=== PATIENT | female | born 1960 | race Two or more races ===

== ENCOUNTER 2016-11-17 21:04 | Emergency (ER) | payer MEDICAID ==
[~2016-11-17] VITALS: Ht 160 cm; Wt 73.0 kg
[~2016-11-17 21:04] MED LIST: ACET325T14 PO; HYDR25TA6 PO; OXYC-223 PO; OXYC-302 PO; SULF1TAB24 PO; WARF1TAB PO
[2016-11-17] MEDS ORDERED: HYDROCHLOROTHIAZIDE 25 MG TABLET PO ONE (23:00)
[2016-11-17 23:54] VITALS: BP 169/83
== END 2016-11-18 00:04 | disposition home or self-care (01) ==
LOC: ED 23:57
DX: S60.212A Contusion of left wrist, initial encounter (principal); S70.02XA Contusion of left hip, initial encounter; S90.32XA Contusion of left foot, initial encounter; I10 Essential (primary) hypertension; W01.0XXA Fall on same level from slipping, tripping and stumbling without subsequent striking against object, initial encounter; Y93.01 Activity, walking, marching and hiking; Y92.090 Kitchen in other non-institutional residence as the place of occurrence of the external cause; Y99.8 Other external cause status; Z88.0 Allergy status to penicillin; Z87.440 Personal history of urinary (tract) infections
CPT/HCPCS: 29125

== ENCOUNTER 2016-12-03 07:14 | Inpatient (IN) | payer MEDICAID ==
[~2016-12-03] VITALS: Ht 157.5 cm; Wt 72.0 kg
[2016-12-03] MEDS ORDERED: SODIUM CHLORIDE FLUSH 10ML SYR IVF ONE (08:00)
[2016-12-03 08:03] LABS: BLOOD UREA NITROGEN 15 mg/dL (7-18)
[2016-12-03 08:07] LABS: IS PT STATUS REG ER OR PRE ER? YES
[2016-12-03] MEDS ORDERED: ENOXAPARIN 40 MG/0.4 ML SQ SCH (11:30)
[2016-12-03] MEDS ORDERED: ACETAMINOPHEN 650 MG/20.3 ML UDC PO PRN (11:30)
[2016-12-03] MEDS ORDERED: POTASSIUM CHLORIDE 20 MEQ TAB.ER.PRT PO ONE (11:30)
[2016-12-03] MEDS ORDERED: ASPIRIN 325 MG TABLET EC PO ONE (11:30)
[2016-12-03 11:58] VITALS: BP 167/88
[2016-12-03 14:06] VITALS: BP 164/73
[2016-12-03 14:07] LABS: IS PT STATUS REG ER OR PRE ER? NO
[2016-12-03 18:44] VITALS: BP 176/107
[2016-12-03 20:06] VITALS: BP 157/89
[2016-12-03] MEDS ORDERED: SIMVASTATIN 10 MG TABLET PO SCH (21:00)
[2016-12-04 00:03] VITALS: BP 146/67
[2016-12-04 04:00] VITALS: BP 142/79
[2016-12-04 06:18] LABS: ASPARTATE AMINO TRANSFERASE 17 U/L (15-37); BLOOD UREA NITROGEN 12 mg/dL (7-18)
[2016-12-04 08:28] VITALS: BP 153/76
[2016-12-04 13:12] VITALS: BP 176/98
[2016-12-04] MEDS ORDERED: LISI-167 PO (14:17)
[2016-12-04] MEDS ORDERED: ASPI-621 PO (14:17)
[2016-12-04] MEDS ORDERED: ENOXAPARIN 40 MG/0.4 ML SQ SCH (16:00)
[2016-12-05] MEDS ORDERED: LISINOPRIL 10 MG TABLET PO SCH (09:00)
== END 2016-12-04 18:40 | disposition home or self-care (01) | DRG 93 ==
LOC: ED 08:25 → EDIP 10:32 → 4EST 11:35
PROVIDERS: ADMIT Family Medicine; ATTEND Family Medicine
DX: R47.1 Dysarthria and anarthria (principal); E87.6 Hypokalemia; I25.10 Atherosclerotic heart disease of native coronary artery without angina pectoris; I11.9 Hypertensive heart disease without heart failure; I25.2 Old myocardial infarction; Z86.73 Personal history of transient ischemic attack (TIA), and cerebral infarction without residual deficits; Z91.14 Patient's other noncompliance with medication regimen; Z83.3 Family history of diabetes mellitus; Z82.49 Family history of ischemic heart disease and other diseases of the circulatory system; Z88.0 Allergy status to penicillin
CPT/HCPCS: 36415; 70450; 70551; 80048; 80053; 80061; 82040; 82962; 84443; 84484; 85025; 85610; 85730; 93005; 93306; 93880; 99285; J1650; 92523-GN

== ENCOUNTER 2017-04-08 23:48 | Emergency (ER) | payer MEDICAID ==
[~2017-04-08] VITALS: Ht 157.5 cm; Wt 71.3 kg
[~2017-04-08 23:48] MED LIST changes: +ASPI-621 PO; +LISI-167 PO; -OXYC-223 PO; +OXYC-306 PO
[2017-04-09 00:21] VITALS: BP 182/103
[2017-04-09 00:36] LABS: HEMATOCRIT 42.6 % (34.6-47.8); HEMOGLOBIN 14.5 g/dL (11.7-16.4); WHITE BLOOD COUNT 6.9 x10^3/uL (3.4-10)
[2017-04-09 00:46] LABS: ASPARTATE AMINO TRANSFERASE 15 U/L (15-37); BLOOD UREA NITROGEN 15 mg/dL (7-18)
[2017-04-09 00:54] LABS: IS PT STATUS REG ER OR PRE ER? YES
== END 2017-04-09 01:40 | disposition home or self-care (01) ==
LOC: ED 23:59
DX: R06.00 Dyspnea, unspecified (principal); R11.0 Nausea; I10 Essential (primary) hypertension; Z86.73 Personal history of transient ischemic attack (TIA), and cerebral infarction without residual deficits; I25.10 Atherosclerotic heart disease of native coronary artery without angina pectoris; Z88.0 Allergy status to penicillin
CPT/HCPCS: 36415; 71020; 80053; 83880; 84484; 85025; 93005; 99285

== ENCOUNTER 2017-04-27 07:52 | Emergency (ER) | payer MEDICAID ==
[~2017-04-27] VITALS: Ht 157.5 cm; Wt 70.7 kg
[2017-04-27] MEDS ORDERED: METOPROLOL 1 MG/ML, 5ML IVPush PRN (08:30)
[2017-04-27] MEDS ORDERED: SODIUM CHLORIDE FLUSH 10ML SYR IVF ONE (08:30)
[2017-04-27] MEDS ORDERED: METOPROLOL 1 MG/ML, 5ML ONE (08:56)
[2017-04-27 09:00] LABS: HEMATOCRIT 44.7 % (34.6-47.8); HEMOGLOBIN 15.4 g/dL (11.7-16.4); WHITE BLOOD COUNT 5.2 x10^3/uL (3.4-10)
[2017-04-27 09:03] LABS: ASPARTATE AMINO TRANSFERASE 12 U/L (15-37); BLOOD UREA NITROGEN 13 mg/dL (7-18)
[2017-04-27 09:05] LABS: PATH.CAST-FLAG NOT PRESENT; SPERM-FLAG NOT PRESENT; SRC-FLAG NOT PRESENT; XTAL-FLAG NOT PRESENT; YLC-FLAG NOT PRESENT
[2017-04-27 09:10] LABS: IS PT STATUS REG ER OR PRE ER? YES
[2017-04-27] MEDS ORDERED: OMNIPAQUE 350 MG/ML, 100ML BOTTLE ONE (09:41)
[2017-04-27 09:58] VITALS: BP 141/83
== END 2017-04-27 10:35 | disposition home or self-care (01) ==
LOC: ED 08:56
DX: M54.5 Low back pain (principal); M54.6 Pain in thoracic spine; I10 Essential (primary) hypertension; I25.2 Old myocardial infarction; Z86.73 Personal history of transient ischemic attack (TIA), and cerebral infarction without residual deficits
CPT/HCPCS: 36415; 71010; 71275; 74175; 80053; 81001; 84484; 85025; 93005; 96374; 99285; Q9967

== ENCOUNTER 2017-10-09 14:25 | Emergency (ER) | payer MEDICAID ==
[~2017-10-09] VITALS: Ht 157.5 cm; Wt 70.8 kg
[2017-10-09 15:27] LABS: BASOPHILS # (AUTO) 0.03 x10^3/uL (0-0.1); BASOPHILS % (AUTO) 0 % (0-1); EOSINOPHILS # (AUTO) 0.01 x10^3/uL (0-0.4); EOSINOPHILS % (AUTO) 0 % (1-7); LYMPHOCYTES # (AUTO) 2.01 x10^3/uL (1-3.4); LYMPHOCYTES % (AUTO) 22 % (22-44); MD NO; MEAN CORPUSCULAR HEMOGLOBIN 32.1 pg (27.0-34.8); MEAN CORPUSCULAR HGB CONC 34.1 g/dL (32.4-35.8); MEAN CORPUSCULAR VOLUME 94.3 fL (80-100); MEAN PLATELET VOLUME 10.6 fL (7.4-10.4); MONOCYTES % (AUTO) 5 % (2-9); NEUTROPHILS # (AUTO) 6.56 x10^3/uL (1.8-6.8); NEUTROPHILS % (AUTO) 73 % (42-75); PLATELET COUNT 200 x10^3/uL (130-400); RED BLOOD COUNT 4.81 x10^6/uL (3.82-5.3); RED CELL DISTRIBUTION WIDTH 13.3 % (9.6-15.2)
[2017-10-09 15:31] LABS: INTERNATIONAL NORMALIZED RATIO 0.97 (0.93-1.1); PROTHROMBIN TIME 10.1 Seconds (9.6-11.5)
[2017-10-09 15:35] LABS: ALBUMIN 4.5 g/dL (3.4-5.0); ANION GAP 7 mmol/L (5-15); CALCIUM 9.1 mg/dL (8.5-10.1); CHLORIDE 106 mmol/L (98-107)
[2017-10-09 15:38] LABS: TROPONIN I < 0.015 ng/mL (0.000-0.045)
[2017-10-09 15:51] VITALS: BP 150/81
[2017-10-10] MEDS ORDERED: LISI1TAB3 PO (07:38)
== END 2017-10-09 17:09 | disposition home or self-care (01) ==
LOC: ED 16:55
DX: G45.9 Transient cerebral ischemic attack, unspecified (principal); I10 Essential (primary) hypertension; I25.2 Old myocardial infarction; I25.10 Atherosclerotic heart disease of native coronary artery without angina pectoris; Z86.73 Personal history of transient ischemic attack (TIA), and cerebral infarction without residual deficits
CPT/HCPCS: 36415; 70450; 71045; 80048; 82040; 84484; 85025; 85610; 93005; 99285

== ENCOUNTER 2017-10-10 07:01 | Inpatient (IN) | payer MEDICAID ==
[~2017-10-10] VITALS: Ht 157.5 cm; Wt 59.3 kg
[2017-10-10] MEDS ORDERED: LISI1TAB3 PO (07:38)
[2017-10-10] MEDS ORDERED: MORPHINE SULFATE 4 MG/ML, 1ML IVPush PRN (08:00)
[2017-10-10] MEDS ORDERED: SODIUM CHLORIDE FLUSH 10ML SYR IVF ONE (08:00)
[2017-10-10] MEDS ORDERED: ONDANSETRON 2MG/ML, 2ML IVPush ONE (08:00)
[2017-10-10] MEDS ORDERED: ONDANSETRON 2MG/ML, 2ML ONE (08:10)
[2017-10-10 08:15] LABS: BASOPHILS # (AUTO) 0.01 x10^3/uL (0-0.1); BASOPHILS % (AUTO) 0 % (0-1); EOSINOPHILS # (AUTO) 0.03 x10^3/uL (0-0.4); EOSINOPHILS % (AUTO) 1 % (1-7); LYMPHOCYTES % (AUTO) 27 % (22-44); MD NO; MEAN CORPUSCULAR HEMOGLOBIN 32.2 pg (27.0-34.8); MEAN CORPUSCULAR HGB CONC 34.4 g/dL (32.4-35.8); MEAN CORPUSCULAR VOLUME 93.4 fL (80-100); MEAN PLATELET VOLUME 10.1 fL (7.4-10.4); MONOCYTES # (AUTO) 0.25 x10^3/uL (0.2-0.8); MONOCYTES % (AUTO) 6 % (2-9); NEUTROPHILS # (AUTO) 2.93 x10^3/uL (1.8-6.8); NEUTROPHILS % (AUTO) 66 % (42-75); PLATELET COUNT 185 x10^3/uL (130-400); RED BLOOD COUNT 4.52 x10^6/uL (3.82-5.3); RED CELL DISTRIBUTION WIDTH 13.4 % (9.6-15.2)
[2017-10-10 08:22] LABS: PROTHROMBIN TIME 10.4 Seconds (9.6-11.5)
[2017-10-10 08:26] LABS: ANION GAP 8 mmol/L (5-15); CALCIUM 8.7 mg/dL (8.5-10.1); CHLORIDE 107 mmol/L (98-107); CREATININE 0.69 mg/dL (0.55-1.02)
[2017-10-10 08:30] LABS: TROPONIN I < 0.015 ng/mL (0.000-0.045)
[2017-10-10 08:51] LABS: MICROSCOPIC INDICATED
[2017-10-10] MEDS ORDERED: LORazepam 2 MG/ML, 1ML ONE (09:12)
[2017-10-10] MEDS ORDERED: LORazepam 2 MG/ML, 1ML IVPush ONE (09:30)
[2017-10-10] MEDS ORDERED: GADOBUTROL 7.5 MMOL/7.5 ML PFS ONE (09:49)
[2017-10-10 11:05] VITALS: BP 114/74
[2017-10-10] MEDS ORDERED: ENALAPRILAT 1.25 MG/ML, 2ML IV PRN (11:30)
[2017-10-10] MEDS ORDERED: BISACODYL 10 MG SUPP PR PRN (11:30)
[2017-10-10] MEDS ORDERED: ACETAMINOPHEN 650 MG/20.3 ML UDC PO PRN (11:30)
[2017-10-10] MEDS ORDERED: DOCUSATE 100 MG CAPSULE PO PRN (11:30)
[2017-10-10] MEDS ORDERED: POLYETHYLENE GLYCOL 17 GM PACKET PO PRN (11:30)
[2017-10-10] MEDS ORDERED: ONDANSETRON 2MG/ML, 2ML IVPush PRN (11:30)
[2017-10-10] MEDS: SODIUM CHLORIDE 0.9% 1,000 ML IV SCH ×2 (11:55→20:47)
[2017-10-10 15:19] VITALS: BP 113/75
[2017-10-10 18:48] VITALS: BP 116/71
[2017-10-10] MEDS ORDERED: ATORVASTATIN 40 MG TABLET PO SCH (21:00)
[2017-10-11 01:25] VITALS: BP 103/65
[2017-10-11 05:54] LABS: HCT (SEDRATE) 39.2 % (34.6-47.8)
[2017-10-11 06:02] LABS: C-REACTIVE PROTEIN, QUANT 0.2 mg/dL (0.02-0.49)
[2017-10-11 06:04] LABS: CHOL/HDL RATIO 3.6; LDL/HDL RATIO 2.1 (0.5-3.0)
[2017-10-11] MEDS: SODIUM CHLORIDE 0.9% 1,000 ML IV SCH (07:07)
[2017-10-11 07:45] VITALS: BP 119/76
[2017-10-11] MEDS ORDERED: ASPIRIN 81 MG TABLET CHEW PO/NG SCH (09:00)
[2017-10-11] MEDS ORDERED: ATOR40TA78 PO (12:27)
[2017-10-11 14:12] VITALS: BP 126/84
== END 2017-10-11 17:09 | disposition home or self-care (01) | DRG 69 ==
LOC: ED 08:25 → EDIP 09:45 → 4EST 10:51
PROVIDERS: ADMIT Internal Medicine; ATTEND Hospitalist
DX: G45.9 Transient cerebral ischemic attack, unspecified (principal); G43.909 Migraine, unspecified, not intractable, without status migrainosus; I10 Essential (primary) hypertension; I25.2 Old myocardial infarction; R29.810 Facial weakness; Z86.73 Personal history of transient ischemic attack (TIA), and cerebral infarction without residual deficits
CPT/HCPCS: 36415; 70553; 80048; 80061; 81001; 82040; 83880; 84484; 85025; 85610; 85651; 86140; 93005; 93306; 93880; 96374; 96375; A9585; J2405; J2060; J7030

== ENCOUNTER 2017-10-16 01:11 | Emergency (ER) | payer MEDICAID ==
[~2017-10-16] VITALS: Ht 152.4 cm; Wt 69.6 kg
[~2017-10-16 01:11] MED LIST changes: +ATOR40TA78 PO; +LISI1TAB3 PO
[2017-10-16 01:43] LABS: BASOPHILS # (AUTO) 0.03 x10^3/uL (0-0.1); BASOPHILS % (AUTO) 0 % (0-1); EOSINOPHILS # (AUTO) 0.11 x10^3/uL (0-0.4); EOSINOPHILS % (AUTO) 1 % (1-7); LYMPHOCYTES # (AUTO) 2.97 x10^3/uL (1-3.4); LYMPHOCYTES % (AUTO) 35 % (22-44); MD NO; MEAN CORPUSCULAR HEMOGLOBIN 31.6 pg (27.0-34.8); MEAN CORPUSCULAR HGB CONC 33.7 g/dL (32.4-35.8); MEAN CORPUSCULAR VOLUME 93.8 fL (80-100); MEAN PLATELET VOLUME 10.5 fL (7.4-10.4); MONOCYTES # (AUTO) 0.59 x10^3/uL (0.2-0.8); MONOCYTES % (AUTO) 7 % (2-9); NEUTROPHILS % (AUTO) 56 % (42-75); PLATELET COUNT 201 x10^3/uL (130-400); RED BLOOD COUNT 4.66 x10^6/uL (3.82-5.3); RED CELL DISTRIBUTION WIDTH 13.1 % (9.6-15.2)
[2017-10-16 01:51] LABS: INTERNATIONAL NORMALIZED RATIO 1.02 (0.93-1.1); PROTHROMBIN TIME 10.5 Seconds (9.6-11.5)
[2017-10-16 01:54] LABS: ALANINE AMINOTRANSFERASE 26 U/L (12-78); ALBUMIN 4.1 g/dL (3.4-5.0); ANION GAP 10 mmol/L (5-15); CALCIUM 8.6 mg/dL (8.5-10.1); CHLORIDE 99 mmol/L (98-107); CREATININE 0.76 mg/dL (0.55-1.02)
[2017-10-16 01:57] LABS: ALKALINE PHOSPHATASE 82 U/L (45-117); BILIRUBIN,TOTAL 0.7 mg/dL (0.2-1.0); TOTAL PROTEIN 8.3 g/dL (6.4-8.2)
[2017-10-16 03:15] VITALS: BP 113/65
== END 2017-10-16 03:18 | disposition home or self-care (01) ==
LOC: ED 01:38
DX: R20.2 Paresthesia of skin (principal); G45.9 Transient cerebral ischemic attack, unspecified; I10 Essential (primary) hypertension; I25.2 Old myocardial infarction; I25.10 Atherosclerotic heart disease of native coronary artery without angina pectoris; Z88.0 Allergy status to penicillin; Z79.82 Long term (current) use of aspirin
CPT/HCPCS: 36415; 70450; 80053; 85025; 85610; 85730; 93005; 99285

== ENCOUNTER 2017-12-14 15:51 | Observation (INO) | payer MEDICAID ==
[~2017-12-14] VITALS: Ht 154.9 cm; Wt 69.0 kg
[2017-12-14 16:07] LABS: BASOPHILS # (AUTO) 0.04 x10^3/uL (0-0.1); BASOPHILS % (AUTO) 1 % (0-1); EOSINOPHILS # (AUTO) 0.06 x10^3/uL (0-0.4); EOSINOPHILS % (AUTO) 1 % (1-7); LYMPHOCYTES % (AUTO) 36 % (22-44); MD NO; MEAN CORPUSCULAR HEMOGLOBIN 32.3 pg (27.0-34.8); MEAN CORPUSCULAR HGB CONC 34.1 g/dL (32.4-35.8); MEAN CORPUSCULAR VOLUME 94.5 fL (80-100); MEAN PLATELET VOLUME 10.5 fL (7.4-10.4); MONOCYTES # (AUTO) 0.49 x10^3/uL (0.2-0.8); MONOCYTES % (AUTO) 6 % (2-9); NEUTROPHILS # (AUTO) 4.37 x10^3/uL (1.8-6.8); NEUTROPHILS % (AUTO) 56 % (42-75); PLATELET COUNT 195 x10^3/uL (130-400); RED BLOOD COUNT 4.71 x10^6/uL (3.82-5.3); RED CELL DISTRIBUTION WIDTH 13.3 % (9.6-15.2)
[2017-12-14 16:15] LABS: INTERNATIONAL NORMALIZED RATIO 0.93 (0.93-1.1); PROTHROMBIN TIME 9.7 Seconds (9.6-11.5)
[2017-12-14] MEDS ORDERED: OMNIPAQUE 350 MG/ML, 100ML BOTTLE ONE (16:52)
[2017-12-14 17:04] LABS: TROPONIN I < 0.015 ng/mL (0.000-0.045)
[2017-12-14] MEDS ORDERED: ENOXAPARIN 40 MG/0.4 ML SQ SCH (18:00)
[2017-12-14] MEDS ORDERED: ACETAMINOPHEN 325 MG TABLET PO PRN (18:00)
[2017-12-14] MEDS ORDERED: DOCUSATE 100 MG CAPSULE PO PRN (18:00)
[2017-12-14] MEDS ORDERED: GUAIFENESIN/COD200MG-20MG/10ML LIQUID PO PRN (18:00)
[2017-12-14] MEDS ORDERED: ONDANSETRON 2MG/ML, 2ML IVPush PRN (18:00)
[2017-12-14] MEDS ORDERED: POTASSIUM CHLORIDE 20 MEQ TAB.ER.PRT PO ONE (18:00)
[2017-12-14] MEDS ORDERED: LABETALOL 5MG/ML, 20ML IVPush PRN (18:00)
[2017-12-14 18:22] LABS: HEMOGLOBIN A1C 6.1 % (4.2-6.3)
[2017-12-14] MEDS ORDERED: SODIUM CHLORIDE FLUSH 10ML SYR IVF PRN (18:30)
[2017-12-14 19:33] VITALS: BP 147/87
[2017-12-14 19:59] VITALS: BP 147/87
[2017-12-14] MEDS: CARVEDILOL 3.125 MG TABLET PO SCH (20:22)
[2017-12-15 00:30] VITALS: BP 105/67
[2017-12-15 04:32] VITALS: BP 108/68
[2017-12-15 05:08] LABS: BASOPHILS # (AUTO) 0.04 x10^3/uL (0-0.1); BASOPHILS % (AUTO) 1 % (0-1); EOSINOPHILS # (AUTO) 0.06 x10^3/uL (0-0.4); EOSINOPHILS % (AUTO) 1 % (1-7); LYMPHOCYTES # (AUTO) 1.96 x10^3/uL (1-3.4); LYMPHOCYTES % (AUTO) 38 % (22-44); MD NO; MEAN CORPUSCULAR HEMOGLOBIN 32.4 pg (27.0-34.8); MEAN CORPUSCULAR HGB CONC 34.2 g/dL (32.4-35.8); MEAN CORPUSCULAR VOLUME 94.9 fL (80-100); MEAN PLATELET VOLUME 10.4 fL (7.4-10.4); MONOCYTES # (AUTO) 0.38 x10^3/uL (0.2-0.8); MONOCYTES % (AUTO) 7 % (2-9); NEUTROPHILS # (AUTO) 2.75 x10^3/uL (1.8-6.8); NEUTROPHILS % (AUTO) 53 % (42-75); PLATELET COUNT 182 x10^3/uL (130-400); RED BLOOD COUNT 4.27 x10^6/uL (3.82-5.3); RED CELL DISTRIBUTION WIDTH 13.6 % (9.6-15.2)
[2017-12-15 05:17] LABS: ANION GAP 7 mmol/L (5-15); CALCIUM 8.5 mg/dL (8.5-10.1); CHLORIDE 110 mmol/L (98-107)
[2017-12-15 05:30] LABS: CHOL/HDL RATIO 3.6; CHOLESTEROL, TOTAL 149 mg/dL (140-239); CREATININE 0.57 mg/dL (0.55-1.02); HDL CHOL % 28 % (28-40); HDL CHOLESTEROL (DIRECT) 41 mg/dL (40-60); LDL CHOLESTEROL,CALCULATED 87 mg/dL (54-169); LDL/HDL RATIO 2.1 (0.5-3.0); TRIGLYCERIDES 106 mg/dL (50-200); VLDL CHOLESTEROL 21 mg/dL (0-25)
[2017-12-15 08:00] VITALS: BP 131/78
[2017-12-15] MEDS ORDERED: LISINOPRIL 10 MG TABLET PO SCH (09:00)
[2017-12-15] MEDS ORDERED: ASPIRIN 81 MG TABLET EC PO SCH (09:00)
[2017-12-15] MEDS ORDERED: HYDROCHLOROTHIAZIDE 12.5 MG CAPSULE PO SCH (09:00)
[2017-12-15] MEDS: CARVEDILOL 3.125 MG TABLET PO SCH (10:02)
[2017-12-15 14:45] VITALS: BP 112/69
== END 2017-12-15 16:30 | disposition home or self-care (01) ==
LOC: ED 17:16 → EDIP 17:17 → INTOOBSV 17:17 → ED 18:12 → 4EST 18:47 → DCLOUNGE 12-15 16:18
PROVIDERS: ADMIT Internal Medicine; ATTEND Internal Medicine
DX: G45.9 Transient cerebral ischemic attack, unspecified (principal); E87.6 Hypokalemia; I10 Essential (primary) hypertension; I25.10 Atherosclerotic heart disease of native coronary artery without angina pectoris; I25.2 Old myocardial infarction; Z96.642 Presence of left artificial hip joint; Z96.652 Presence of left artificial knee joint; Z82.49 Family history of ischemic heart disease and other diseases of the circulatory system; Z83.3 Family history of diabetes mellitus
CPT/HCPCS: 36415; 70450; 70496; 70498; 80047; 80048; 80061; 83036; 83735; 84443; 84484; 85025; 85610; 85730; 93005; 96372; 97162; 97165; 99285; G0378; J1650; Q9967

== ENCOUNTER 2018-03-28 08:02 | Emergency (ER) | payer MEDICAID ==
[~2018-03-28] VITALS: Ht 157.5 cm; Wt 68.2 kg
[2018-03-28] MEDS ORDERED: MECLIZINE CHEWABLE 25 MG TAB PO ONE (09:00)
[2018-03-28 09:19] LABS: ALANINE AMINOTRANSFERASE 22 U/L (12-78); ANION GAP 7 mmol/L (5-15); CALCIUM 8.9 mg/dL (8.5-10.1); CHLORIDE 106 mmol/L (98-107)
[2018-03-28 09:21] LABS: ALKALINE PHOSPHATASE 75 U/L (45-117); BILIRUBIN,TOTAL 0.5 mg/dL (0.2-1.0)
[2018-03-28 09:27] LABS: BASOPHILS # (AUTO) 0.03 x10^3/uL (0-0.1); BASOPHILS % (AUTO) 1 % (0-1); EOSINOPHILS # (AUTO) 0.05 x10^3/uL (0-0.4); EOSINOPHILS % (AUTO) 1 % (1-7); LYMPHOCYTES # (AUTO) 1.45 x10^3/uL (1-3.4); LYMPHOCYTES % (AUTO) 29 % (22-44); MD NO; MEAN CORPUSCULAR HEMOGLOBIN 32.5 pg (27.0-34.8); MEAN CORPUSCULAR HGB CONC 34.3 g/dL (32.4-35.8); MEAN CORPUSCULAR VOLUME 94.6 fL (80-100); MEAN PLATELET VOLUME 10.5 fL (7.4-10.4); MONOCYTES # (AUTO) 0.25 x10^3/uL (0.2-0.8); MONOCYTES % (AUTO) 5 % (2-9); NEUTROPHILS # (AUTO) 3.22 x10^3/uL (1.8-6.8); NEUTROPHILS % (AUTO) 64 % (42-75); PLATELET COUNT 199 x10^3/uL (130-400); RED BLOOD COUNT 4.51 x10^6/uL (3.82-5.3); RED CELL DISTRIBUTION WIDTH 13.1 % (9.6-15.2)
[2018-03-28] MEDS ORDERED: MECLIZINE CHEWABLE 25 MG TAB ONE (09:38)
[2018-03-28] MEDS ORDERED: PROMETHAZINE 25 MG/ML, 1ML IM ONE (10:00)
[2018-03-28] MEDS ORDERED: LISINOPRIL 10 MG TABLET PO ONE (10:00)
[2018-03-28] MEDS ORDERED: KETOROLAC 30 MG/1 ML IM ONE (10:00)
[2018-03-28] MEDS ORDERED: PROMETHAZINE 25 MG/ML, 1ML ONE (10:07)
[2018-03-28] MEDS ORDERED: KETOROLAC 30 MG/1 ML ONE (10:07)
[2018-03-28 10:40] VITALS: BP 156/63
== END 2018-03-28 11:28 | disposition home or self-care (01) ==
LOC: ED 09:50
DX: R51 Headache (principal); R42 Dizziness and giddiness; I10 Essential (primary) hypertension; I25.2 Old myocardial infarction; I25.10 Atherosclerotic heart disease of native coronary artery without angina pectoris; Z86.73 Personal history of transient ischemic attack (TIA), and cerebral infarction without residual deficits; Z88.0 Allergy status to penicillin; Z88.8 Allergy status to other drugs, medicaments and biological substances
CPT/HCPCS: 36415; 70450; 71045; 80053; 85025; 93005; 99285

== ENCOUNTER 2018-04-12 19:37 | Observation (INO) | payer MEDICAID ==
[~2018-04-12] VITALS: Ht 154.9 cm; Wt 71.1 kg
[2018-04-12] MEDS ORDERED: ASPIRIN 81 MG TABLET CHEW PO ONE (20:00)
[2018-04-12 20:17] LABS: BASOPHILS # (AUTO) 0.02 x10^3/uL (0-0.1); BASOPHILS % (AUTO) 0 % (0-1); EOSINOPHILS # (AUTO) 0.05 x10^3/uL (0-0.4); EOSINOPHILS % (AUTO) 1 % (1-7); LYMPHOCYTES # (AUTO) 1.78 x10^3/uL (1-3.4); LYMPHOCYTES % (AUTO) 26 % (22-44); MD NO; MEAN CORPUSCULAR HEMOGLOBIN 32.5 pg (27.0-34.8); MEAN CORPUSCULAR HGB CONC 34.2 g/dL (32.4-35.8); MEAN PLATELET VOLUME 9.8 fL (7.4-10.4); MONOCYTES # (AUTO) 0.42 x10^3/uL (0.2-0.8); MONOCYTES % (AUTO) 6 % (2-9); NEUTROPHILS # (AUTO) 4.49 x10^3/uL (1.8-6.8); NEUTROPHILS % (AUTO) 66 % (42-75); PLATELET COUNT 169 x10^3/uL (130-400); RED BLOOD COUNT 4.17 x10^6/uL (3.82-5.3)
[2018-04-12 20:28] LABS: ALANINE AMINOTRANSFERASE 25 U/L (12-78); ALBUMIN 3.6 g/dL (3.4-5.0); ANION GAP 7 mmol/L (5-15); CALCIUM 8.5 mg/dL (8.5-10.1); CHLORIDE 106 mmol/L (98-107); CREATININE 0.76 mg/dL (0.55-1.02)
[2018-04-12 20:32] LABS: ALKALINE PHOSPHATASE 66 U/L (45-117); BILIRUBIN,TOTAL 0.4 mg/dL (0.2-1.0); TOTAL PROTEIN 7.5 g/dL (6.4-8.2); TROPONIN I < 0.015 ng/mL (0.000-0.045)
[2018-04-12 20:32] LABS: MICROSCOPIC AUTO
[2018-04-12 20:33] LABS: CULTURE INDICATED? NO
[2018-04-12] MEDS ORDERED: BISACODYL 10 MG SUPP PR PRN (22:30)
[2018-04-12] MEDS ORDERED: ACETAMINOPHEN 325 MG TABLET PO PRN (22:30)
[2018-04-12] MEDS ORDERED: ONDANSETRON ODT 4 MG PO PRN (22:30)
[2018-04-12] MEDS ORDERED: POLYETHYLENE GLYCOL 17 GM PACKET PO PRN (22:30)
[2018-04-12] MEDS ORDERED: NITROGLYCERIN 0.4 MG BOTTLE (25 TABS) SL PRN (22:30)
[2018-04-12] MEDS ORDERED: KETOROLAC 30 MG/1 ML IV PRN (22:30)
[2018-04-12] MEDS ORDERED: morphine SULFATE 10 MG/ML, 1ML IVPush PRN (22:30)
[2018-04-12 22:56] VITALS: BP 149/83
[2018-04-12] MEDS ORDERED: HEPARIN 5,000 UNITS/ML, 1ML ONE (23:24)
[2018-04-12] MEDS: HEPARIN 5,000 UNITS/ML, 1ML SQ SCH (23:39)
[2018-04-12] MEDS: SODIUM CHLORIDE FLUSH 10ML SYR IVF SCH (23:39)
[2018-04-12] MEDS: LISINOPRIL 10 MG TABLET PO SCH (23:39)
[2018-04-13 01:15] VITALS: BP 119/71
[2018-04-13 02:33] LABS: TROPONIN I < 0.015 ng/mL (0.000-0.045)
[2018-04-13 02:38] LABS: CHOL/HDL RATIO 4.1; LDL/HDL RATIO 2.5 (0.5-3.0)
[2018-04-13 07:41] VITALS: BP 120/75
[2018-04-13 08:17] LABS: TROPONIN I < 0.015 ng/mL (0.000-0.045)
[2018-04-13] MEDS: HEPARIN 5,000 UNITS/ML, 1ML SQ SCH (08:29)
[2018-04-13] MEDS: SODIUM CHLORIDE FLUSH 10ML SYR IVF SCH (08:31)
[2018-04-13] MEDS ORDERED: REGADENOSON 0.4 MG/5 ML SYRINGE ONE (08:45)
[2018-04-13] MEDS ORDERED: HYDROCHLOROTHIAZIDE 12.5 MG CAPSULE PO SCH (09:00)
[2018-04-13] MEDS ORDERED: SENNA/DOCUSATE TABLET PO SCH (09:00)
[2018-04-13] MEDS ORDERED: ASPIRIN 81 MG TABLET EC PO SCH (09:00)
[2018-04-13] MEDS: LISINOPRIL 10 MG TABLET PO SCH (10:13)
[2018-04-13] MEDS ORDERED: METO25TA35 PO ×2 (13:08→13:09)
[2018-04-13 13:23] VITALS: BP 148/93
== END 2018-04-13 15:00 | disposition home or self-care (01) ==
LOC: ED 21:12 → INTOOBSV 21:50 → EDIP 21:50 → 5SO 22:44 → DCLOUNGE 04-13 14:54
PROVIDERS: ADMIT Hospitalist; ATTEND Family Medicine
DX: R07.89 Other chest pain (principal); R42 Dizziness and giddiness; G43.909 Migraine, unspecified, not intractable, without status migrainosus; I10 Essential (primary) hypertension; I25.2 Old myocardial infarction; I25.10 Atherosclerotic heart disease of native coronary artery without angina pectoris; M19.90 Unspecified osteoarthritis, unspecified site; Z86.73 Personal history of transient ischemic attack (TIA), and cerebral infarction without residual deficits; Z79.82 Long term (current) use of aspirin
CPT/HCPCS: 36415; 71045; 78452; 80053; 80061; 81001; 84484; 85025; 93005; 93017; 96372; 99285; A9502; C9898; G0378; J1644; J2785

== ENCOUNTER 2018-10-04 09:52 | Observation (INO) | payer MEDICAID ==
[~2018-10-04] VITALS: Ht 157.5 cm; Wt 75.7 kg
[~2018-10-04 09:52] MED LIST changes: -ASPI-621 PO; +ASPI81TA45 PO; +METO25TA35 PO
--- NOTE | 2018-10-04 10:12 | NUR ---
PT TO CT VIA ALFREDO, ON MONITOR WITH RN
[2018-10-04 10:16] LABS: BASOPHILS # (AUTO) 0.02 x10^3/uL (0-0.1); BASOPHILS % (AUTO) 0 % (0-1); EOSINOPHILS # (AUTO) 0.05 x10^3/uL (0-0.4); EOSINOPHILS % (AUTO) 1 % (1-7); LYMPHOCYTES # (AUTO) 1.89 x10^3/uL (1-3.4); LYMPHOCYTES % (AUTO) 28 % (22-44); MD NO; MEAN CORPUSCULAR HEMOGLOBIN 31.9 pg (27.0-34.8); MEAN CORPUSCULAR HGB CONC 33.7 g/dL (32.4-35.8); MEAN CORPUSCULAR VOLUME 94.5 fL (80-100); MEAN PLATELET VOLUME 10.4 fL (7.4-10.4); MONOCYTES # (AUTO) 0.33 x10^3/uL (0.2-0.8); MONOCYTES % (AUTO) 5 % (2-9); NEUTROPHILS # (AUTO) 4.39 x10^3/uL (1.8-6.8); NEUTROPHILS % (AUTO) 66 % (42-75); PLATELET COUNT 206 x10^3/uL (130-400); RED BLOOD COUNT 4.85 x10^6/uL (3.82-5.3); RED CELL DISTRIBUTION WIDTH 13.1 % (9.6-15.2)
--- NOTE | 2018-10-04 10:25 | NUR ---
PT RETURN TO ROOM, PLACED ON MONITORS, SR PER MONITOR. PTS DAUGHTER AT BEDSIDE.
[2018-10-04 10:27] LABS: INTERNATIONAL NORMALIZED RATIO 0.95 (0.93-1.1)
[2018-10-04] MEDS ORDERED: ONDANSETRON 2MG/ML, 2ML ONE (10:29)
[2018-10-04] MEDS ORDERED: OMNIPAQUE 350 MG/ML, 100ML BOTTLE ONE (10:30)
[2018-10-04] MEDS ORDERED: ONDANSETRON 2MG/ML, 2ML IVPush ONE (10:30)
--- NOTE | 2018-10-04 10:30 | NUR ---
ON-CALL NEURO MD (DR MILLER) PAGED
--- NOTE | 2018-10-04 10:35 | NUR ---
PT WITH NAUSEA, RETCHING, BEGAN AFTER CT/CONTRAST. PER PTS DAUGHTER PT WAS NAUSEATED AT HOME. PTS DAUGHTER SAW HER NORMAL AT 0530. AT 0916, PT TEXTED HER DAUGHTER THAT SHE "DIDNT FEEL WELL" PER HER DAUGHTER PT KEPT ASKING ABOUT DAUGHTERS SON, PT WAS PALE, C/O FACE TINGLY AND HAD A HEADACHE. NEUROLOGY EXAM VIA ROBOT IN PROCESS
--- NOTE | 2018-10-04 10:43 | NUR ---
PT PLACED ON 3L NC. SATS INCREASED TO 96%
[2018-10-04] MEDS ORDERED: LISI-167 PO (10:50)
--- NOTE | 2018-10-04 11:18 | NUR ---
ATTEMPT TO CALL REPORT, RN NOT AVAILABLE.
--- NOTE | 2018-10-04 11:29 | NUR ---
REPORT TO MAX BASURTO, POC DISCUSSED.
[2018-10-04] MEDS ORDERED: SODIUM CHLORIDE FLUSH 10ML SYR IVF PRN (11:30)
[2018-10-04] MEDS: SODIUM CHLORIDE 0.9% 1,000 ML IV SCH (13:18)
[2018-10-04] MEDS ORDERED: LABETALOL 5MG/ML, 20ML IVPush PRN ×2 (13:30)
[2018-10-04] MEDS ORDERED: ACETAMINOPHEN 325 MG TABLET PO PRN (13:30)
[2018-10-04] MEDS ORDERED: NITROGLYCERIN 0.4 MG BOTTLE (25 TABS) SL PRN (13:30)
[2018-10-04] MEDS ORDERED: ASPIRIN 81 MG TABLET CHEW PO SCH (13:30)
[2018-10-04] MEDS: HEPARIN 5,000 UNITS/ML, 1ML SQ SCH ×2 (13:53→21:05)
[2018-10-04 14:12] LABS: TROPONIN I < 0.015 ng/mL (0.000-0.045)
[2018-10-04 15:30] VITALS: BP 138/78
[2018-10-04 18:49] VITALS: BP 105/67
[2018-10-04 19:33] LABS: TROPONIN I < 0.015 ng/mL (0.000-0.045)
[2018-10-05 02:46] VITALS: BP 95/61
[2018-10-05] MEDS: SODIUM CHLORIDE 0.9% 1,000 ML IV SCH (03:02)
[2018-10-05] MEDS: HEPARIN 5,000 UNITS/ML, 1ML SQ SCH ×2 (05:25→13:09)
[2018-10-05 05:43] LABS: BASOPHILS # (AUTO) 0.04 x10^3/uL (0-0.1); BASOPHILS % (AUTO) 1 % (0-1); EOSINOPHILS # (AUTO) 0.06 x10^3/uL (0-0.4); EOSINOPHILS % (AUTO) 1 % (1-7); LYMPHOCYTES # (AUTO) 1.59 x10^3/uL (1-3.4); LYMPHOCYTES % (AUTO) 35 % (22-44); MD NO; MEAN CORPUSCULAR HEMOGLOBIN 32.5 pg (27.0-34.8); MEAN CORPUSCULAR HGB CONC 34.2 g/dL (32.4-35.8); MEAN PLATELET VOLUME 10.2 fL (7.4-10.4); MONOCYTES # (AUTO) 0.31 x10^3/uL (0.2-0.8); MONOCYTES % (AUTO) 7 % (2-9); NEUTROPHILS # (AUTO) 2.53 x10^3/uL (1.8-6.8); NEUTROPHILS % (AUTO) 56 % (42-75); PLATELET COUNT 173 x10^3/uL (130-400); RED BLOOD COUNT 4.17 x10^6/uL (3.82-5.3); RED CELL DISTRIBUTION WIDTH 13.4 % (9.6-15.2)
[2018-10-05 05:58] LABS: ALBUMIN 3.5 g/dL (3.4-5.0); ANION GAP 4 mmol/L (5-15); CALCIUM 8.1 mg/dL (8.5-10.1); CHLORIDE 112 mmol/L (98-107)
[2018-10-05 06:03] LABS: ALANINE AMINOTRANSFERASE 19 U/L (12-78); ALKALINE PHOSPHATASE 59 U/L (45-117); BILIRUBIN,TOTAL 0.7 mg/dL (0.2-1.0); CHOLESTEROL, TOTAL 159 mg/dL (140-239); CREATININE 0.71 mg/dL (0.55-1.02); HDL CHOL % 25 % (28-40); HDL CHOLESTEROL (DIRECT) 40 mg/dL (40-60); LDL CHOLESTEROL,CALCULATED 87 mg/dL (54-169); LDL/HDL RATIO 2.2 (0.5-3.0); TRIGLYCERIDES 160 mg/dL (50-200); VLDL CHOLESTEROL 32 mg/dL (0-25)
[2018-10-05 06:53] VITALS: BP 115/69
[2018-10-05] MEDS ORDERED: LISINOPRIL 10 MG TABLET PO SCH (09:00)
[2018-10-05] MEDS ORDERED: ASPIRIN 81 MG TABLET EC PO SCH (09:00)
[2018-10-05 09:17] LABS: TROPONIN I < 0.015 ng/mL (0.000-0.045)
== END 2018-10-05 15:30 | disposition home or self-care (01) ==
LOC: ED 10:37 → INTOOBSV 11:09 → EDIP 11:09 → 4WST 11:42 → DCLOUNGE 10-05 15:17
PROVIDERS: ADMIT Internal Medicine; ATTEND Internal Medicine
DX: R20.0 Anesthesia of skin (principal); R07.89 Other chest pain; I25.2 Old myocardial infarction; M19.90 Unspecified osteoarthritis, unspecified site; I25.10 Atherosclerotic heart disease of native coronary artery without angina pectoris; R73.9 Hyperglycemia, unspecified; G43.009 Migraine without aura, not intractable, without status migrainosus; I10 Essential (primary) hypertension; I45.81 Long QT syndrome; M50.322 Other cervical disc degeneration at C5-C6 level; Z79.82 Long term (current) use of aspirin; Z82.49 Family history of ischemic heart disease and other diseases of the circulatory system; Z86.73 Personal history of transient ischemic attack (TIA), and cerebral infarction without residual deficits; Z88.8 Allergy status to other drugs, medicaments and biological substances; Z96.642 Presence of left artificial hip joint
CPT/HCPCS: 36415; 70450; 70496; 70498; 80047; 80053; 80061; 82962; 84484; 85025; 85610; 85730; 93005; 93306; 96372; 96374; 97161; 97165; 99284; G0378; J1644; J2405; J7030; Q9967

== ENCOUNTER 2018-11-05 16:56 | Emergency (ER) | payer MEDICAID ==
[~2018-11-05] VITALS: Ht 154.9 cm; Wt 72.0 kg
--- NOTE | 2018-11-05 17:26 | NUR ---
MARKETING ANALYTICS SPECIALIST: PT AMBULATORY TO ROOM, UPRIGHT STEADY GAIT. NAD NOTED
--- NOTE | 2018-11-05 17:35 | NUR ---
PT TO ED FOR SORE THROAT WITH ASSOCIATED SWELLING X3-4 DAYS. PT ALSO SATES SHE CAN FEEL RICE STUCK IN HER THROAT FROM [facility] TODAY. CONNECTED TO MONITORS. HTN, ALL OTHER VSS. EDMD TO BEDSIDE FOR ASSESSMENT. AWAITING ORDERS.
--- NOTE | 2018-11-05 18:03 | NUR ---
all results back at this time. chart up for recheck.
[2018-11-05 18:11] VITALS: BP 155/87
--- NOTE | 2018-11-05 18:12 | NUR ---
pt resting in room with family at bedside. vss. chart up for recheck.
== END 2018-11-05 18:52 | disposition home or self-care (01) ==
LOC: ED 18:00
DX: R13.14 Dysphagia, pharyngoesophageal phase (principal); I25.10 Atherosclerotic heart disease of native coronary artery without angina pectoris; I25.2 Old myocardial infarction; I10 Essential (primary) hypertension; Z86.73 Personal history of transient ischemic attack (TIA), and cerebral infarction without residual deficits
CPT/HCPCS: 70360; 99283; J7512

== ENCOUNTER 2018-11-07 11:37 | Inpatient (IN) | payer MEDICAID ==
[~2018-11-07] VITALS: Ht 154.9 cm; Wt 71.5 kg
--- NOTE | 2018-11-07 11:50 | NUR ---
pt bib remsa for sensation of food stuck in esophagus. pt points to chest when asked where she feels the food. pt seen in this ed for same on tuesday. diagnosed with epiglottitis and dc with prednisone. pt compliant with all meds. med rec complete. connected to monitors. vss. pa present for assessment. awaiting orders at this time.
[2018-11-07] MEDS ORDERED: SODIUM CHLORIDE FLUSH 10ML SYR IVF ONE (12:00)
--- NOTE | 2018-11-07 12:02 | NUR ---
LAB AT BEDSIDE.
[2018-11-07 12:23] LABS: BASOPHILS # (AUTO) 0.02 x10^3/uL (0-0.1); BASOPHILS % (AUTO) 0 % (0-1); EOSINOPHILS # (AUTO) 0.02 x10^3/uL (0-0.4); EOSINOPHILS % (AUTO) 0 % (1-7); LYMPHOCYTES # (AUTO) 2.45 x10^3/uL (1-3.4); LYMPHOCYTES % (AUTO) 32 % (22-44); MD NO; MEAN CORPUSCULAR HEMOGLOBIN 32.9 pg (27.0-34.8); MEAN CORPUSCULAR HGB CONC 34.4 g/dL (32.4-35.8); MEAN CORPUSCULAR VOLUME 95.6 fL (80-100); MEAN PLATELET VOLUME 10.3 fL (7.4-10.4); MONOCYTES # (AUTO) 0.48 x10^3/uL (0.2-0.8); MONOCYTES % (AUTO) 6 % (2-9); NEUTROPHILS # (AUTO) 4.63 x10^3/uL (1.8-6.8); NEUTROPHILS % (AUTO) 61 % (42-75); PLATELET COUNT 193 x10^3/uL (130-400); RED BLOOD COUNT 4.24 x10^6/uL (3.82-5.3); RED CELL DISTRIBUTION WIDTH 13.1 % (9.6-15.2)
[2018-11-07 12:26] LABS: ALBUMIN 3.7 g/dL (3.4-5.0); ANION GAP 5 mmol/L (5-15); CALCIUM 8.9 mg/dL (8.5-10.1); CHLORIDE 107 mmol/L (98-107); CREATININE 0.73 mg/dL (0.55-1.02)
[2018-11-07 12:30] LABS: TROPONIN I < 0.015 ng/mL (0.000-0.045)
--- NOTE | 2018-11-07 12:45 | NUR ---
pt to ct
[2018-11-07] MEDS ORDERED: OMNIPAQUE 350 MG/ML, 100ML BOTTLE ONE (13:01)
--- NOTE | 2018-11-07 13:04 | NUR ---
pt back from ct. pt resting in room with family at bedside. vss. no needs expressed. call light within reach. awaiting ct results.
--- NOTE | 2018-11-07 13:50 | NUR ---
all results back at this time. chart up for recheck.
--- NOTE | 2018-11-07 14:03 | NUR ---
new orders received for esophagram. pt resting in room with family at bedside. vss. no needs expressed. call light within reach. awaiting imaging.
--- NOTE | 2018-11-07 15:12 | NUR ---
pt to imaging.
--- NOTE | 2018-11-07 15:27 | NUR ---
pt back from imaging. no needs at this time. call light within reach. vss. awaiting results.
--- NOTE | 2018-11-07 15:42 | NUR ---
all results back at this time. chart up for recheck.
--- NOTE | 2018-11-07 15:43 | NUR ---
edmd to bedside to update on poc. awaiting dispo.
[2018-11-07] MEDS ORDERED: METOCLOPRAMIDE 5 MG/ML, 2ML ONE (15:58)
[2018-11-07] MEDS ORDERED: DIPHENHYDRAMINE 50 MG/ML, 1ML ONE (15:58)
[2018-11-07] MEDS ORDERED: DIPHENHYDRAMINE 50 MG/ML, 1ML IVPush ONE (16:00)
[2018-11-07] MEDS ORDERED: METOCLOPRAMIDE 5 MG/ML, 2ML IVPush ONE (16:00)
--- NOTE | 2018-11-07 16:24 | NUR ---
pt able to drink approx 4oz h2o without difficulty in small sips. pt unable to take large gulp of h2o. pt reports no nausea. no wretching/vomiting noted. pt denies the feeling of anythign stuck in her throat at this time. will notify edmd.
--- NOTE | 2018-11-07 16:46 | NUR ---
pt resting in room with family at bedside. vss. no needs expressed. call light within reach. awaiting dispo.
--- NOTE | 2018-11-07 16:48 | NUR ---
edmd to bedside to update on poc. awaiting dispo.
--- NOTE | 2018-11-07 17:43 | NUR ---
admit orders received.
--- NOTE | 2018-11-07 17:58 | NUR ---
pt resting in room with family at bedside. vss. no needs expressed. call light within reach. awaiting room assignment.
[2018-11-07 19:05] VITALS: BP 134/81
[2018-11-07] MEDS ORDERED: BISACODYL 10 MG SUPP PR PRN (19:30)
[2018-11-07] MEDS ORDERED: LIDODERM 5% PATCH TD PRN (19:30)
[2018-11-07] MEDS ORDERED: METOCLOPRAMIDE 5 MG/ML, 2ML IVPush PRN (19:30)
[2018-11-07] MEDS ORDERED: LABETALOL 5MG/ML, 20ML IVPush PRN (19:30)
[2018-11-07 21:14] LABS: TROPONIN I < 0.015 ng/mL (0.000-0.045)
[2018-11-07] MEDS: ENOXAPARIN 40 MG/0.4 ML SQ SCH (21:26)
[2018-11-07] MEDS: D5%-0.45NACL+KCL 20MEQ 1,000 ML IV SCH (21:27)
[2018-11-08 01:43] VITALS: BP 122/71
[2018-11-08 03:40] LABS: BASOPHILS # (AUTO) 0.03 x10^3/uL (0-0.1); BASOPHILS % (AUTO) 1 % (0-1); EOSINOPHILS # (AUTO) 0.06 x10^3/uL (0-0.4); EOSINOPHILS % (AUTO) 1 % (1-7); LYMPHOCYTES % (AUTO) 51 % (22-44); MD NO; MEAN CORPUSCULAR HEMOGLOBIN 32.6 pg (27.0-34.8); MEAN CORPUSCULAR HGB CONC 34.4 g/dL (32.4-35.8); MEAN CORPUSCULAR VOLUME 94.6 fL (80-100); MEAN PLATELET VOLUME 10.4 fL (7.4-10.4); MONOCYTES # (AUTO) 0.32 x10^3/uL (0.2-0.8); MONOCYTES % (AUTO) 7 % (2-9); NEUTROPHILS # (AUTO) 1.99 x10^3/uL (1.8-6.8); NEUTROPHILS % (AUTO) 41 % (42-75); PLATELET COUNT 179 x10^3/uL (130-400); RED CELL DISTRIBUTION WIDTH 13.5 % (9.6-15.2)
[2018-11-08 03:41] LABS: ANION GAP 5 mmol/L (5-15); CALCIUM 8.1 mg/dL (8.5-10.1); CHLORIDE 112 mmol/L (98-107); CREATININE 0.67 mg/dL (0.55-1.02)
[2018-11-08 03:45] LABS: TROPONIN I < 0.015 ng/mL (0.000-0.045)
[2018-11-08] MEDS: LISINOPRIL 10 MG TABLET PO SCH (08:06)
[2018-11-08] MEDS: ASPIRIN 81 MG TABLET EC PO SCH (08:06)
[2018-11-08 08:10] VITALS: BP 144/90
--- NOTE | 2018-11-08 10:26 | NUR ---
REC: Chopped diet with thin liquids (per patient request) once cleared by ; advance as tolerated Addendum: 11/08/18 at 1027 by Shaunna MUNOZ Amended: Links added.
[2018-11-08] MEDS: D5%-0.45NACL+KCL 20MEQ 1,000 ML IV SCH ×2 (12:35→22:09)
[2018-11-08 14:23] VITALS: BP 136/94
[2018-11-08 21:03] VITALS: BP 145/81
[2018-11-08] MEDS: ENOXAPARIN 40 MG/0.4 ML SQ SCH (22:09)
[2018-11-09 01:11] VITALS: BP 142/86
[2018-11-09 05:53] LABS: BASOPHILS # (AUTO) 0.03 x10^3/uL (0-0.1); BASOPHILS % (AUTO) 1 % (0-1); EOSINOPHILS # (AUTO) 0.07 x10^3/uL (0-0.4); EOSINOPHILS % (AUTO) 1 % (1-7); LYMPHOCYTES # (AUTO) 2.06 x10^3/uL (1-3.4); LYMPHOCYTES % (AUTO) 39 % (22-44); MD NO; MEAN CORPUSCULAR HEMOGLOBIN 32.7 pg (27.0-34.8); MEAN CORPUSCULAR HGB CONC 34.6 g/dL (32.4-35.8); MEAN CORPUSCULAR VOLUME 94.6 fL (80-100); MEAN PLATELET VOLUME 10.1 fL (7.4-10.4); MONOCYTES # (AUTO) 0.37 x10^3/uL (0.2-0.8); MONOCYTES % (AUTO) 7 % (2-9); NEUTROPHILS # (AUTO) 2.79 x10^3/uL (1.8-6.8); NEUTROPHILS % (AUTO) 52 % (42-75); PLATELET COUNT 183 x10^3/uL (130-400); RED BLOOD COUNT 4.42 x10^6/uL (3.82-5.3); RED CELL DISTRIBUTION WIDTH 13.1 % (9.6-15.2)
[2018-11-09 05:54] LABS: ANION GAP 6 mmol/L (5-15); CALCIUM 8.5 mg/dL (8.5-10.1); CHLORIDE 109 mmol/L (98-107); CREATININE 0.61 mg/dL (0.55-1.02)
[2018-11-09 07:47] VITALS: BP 159/107
[2018-11-09] MEDS ORDERED: MIDAZOLAM 1 MG/ML, 5ML ONE (08:09)
[2018-11-09] MEDS ORDERED: FENTANYL PF 100 MCG/2ML ONE (08:09)
[2018-11-09] MEDS: ASPIRIN 81 MG TABLET EC PO SCH (09:00)
[2018-11-09 09:33] VITALS: BP 129/81
[2018-11-09] MEDS ORDERED: PANT40TA5 PO (09:58)
[2018-11-09] MEDS ORDERED: PANTOPROZOLE 40MG TABLET PO SCH (10:00)
[2018-11-09] MEDS: D5%-0.45NACL+KCL 20MEQ 1,000 ML IV SCH (11:09)
[2018-11-09] MEDS: LISINOPRIL 10 MG TABLET PO SCH (11:09)
== END 2018-11-09 14:35 | disposition home or self-care (01) | DRG 392 ==
LOC: ED 14:04 → EDIP 17:39 → 3NE 19:00 → DCLOUNGE 11-09 14:25
PROVIDERS: ADMIT Internal Medicine; ATTEND Internal Medicine
PROC: 0DB68ZX Excision of Stomach, Via Natural or Artificial Opening Endoscopic, Diagnostic (ICD-10-PCS; 2018-11-09)
PROC: 0DB28ZX Excision of Middle Esophagus, Via Natural or Artificial Opening Endoscopic, Diagnostic (ICD-10-PCS; principal; 2018-11-09 08:00)
DX: K29.60 Other gastritis without bleeding (principal); I50.30 Unspecified diastolic (congestive) heart failure; J05.10 Acute epiglottitis without obstruction; J98.11 Atelectasis; E87.6 Hypokalemia; I11.0 Hypertensive heart disease with heart failure; I25.10 Atherosclerotic heart disease of native coronary artery without angina pectoris; Z96.642 Presence of left artificial hip joint; K44.9 Diaphragmatic hernia without obstruction or gangrene; K22.8 Other specified diseases of esophagus; M19.90 Unspecified osteoarthritis, unspecified site; M48.02 Spinal stenosis, cervical region; R13.11 Dysphagia, oral phase; Z82.49 Family history of ischemic heart disease and other diseases of the circulatory system; Z86.73 Personal history of transient ischemic attack (TIA), and cerebral infarction without residual deficits; Z90.12 Acquired absence of left breast and nipple; I25.2 Old myocardial infarction; Z90.11 Acquired absence of right breast and nipple; Z90.49 Acquired absence of other specified parts of digestive tract; Z88.0 Allergy status to penicillin; Z88.8 Allergy status to other drugs, medicaments and biological substances
CPT/HCPCS: 36415; 70491; 71045; 72141; 74220; 80048; 82040; 83735; 83880; 84484; 85025; 88305; 88342; 93005; 96374; 96375; 99152; 99153; 99285; G0378; J1650; J2250; J3010; Q9967; J1200; J2765; J3480

== ENCOUNTER 2018-11-28 23:14 | Emergency (ER) | payer MEDICAID ==
[~2018-11-28] VITALS: Ht 157.5 cm; Wt 62.0 kg
[~2018-11-28 23:14] MED LIST changes: +PANT40TA5 PO
[2018-11-28 23:18] VITALS: BP 150/80
[2018-11-28] MEDS ORDERED: METO25TA35 PO (23:23)
--- NOTE | 2018-11-28 23:47 | NUR ---
SWALLOW EVAL PREFORMED WITH PT SITTING UP AND TAKING SMALL SIPS. PT TOLERATED WATER WELL WITH NO COUGHING OR CLEARING OF THE THROAT.
== END 2018-11-29 00:39 | disposition home or self-care (01) ==
LOC: ED 23:42
DX: R13.14 Dysphagia, pharyngoesophageal phase (principal); R09.89 Other specified symptoms and signs involving the circulatory and respiratory systems; I25.10 Atherosclerotic heart disease of native coronary artery without angina pectoris; I10 Essential (primary) hypertension; I25.2 Old myocardial infarction; Z86.73 Personal history of transient ischemic attack (TIA), and cerebral infarction without residual deficits
CPT/HCPCS: 99283

== ENCOUNTER 2018-12-03 19:35 | Emergency (ER) | payer MEDICAID ==
[~2018-12-03] VITALS: Ht 154.9 cm; Wt 68.4 kg
--- NOTE | 2018-12-03 20:24 | NUR ---
PT TO ROOM FROM TRIAGE IN NAD WITH C/O SIDE EFFECTS OF PAIN MEDS
[2018-12-03 21:12] LABS: BASOPHILS # (AUTO) 0.02 x10^3/uL (0-0.1); BASOPHILS % (AUTO) 0 % (0-1); EOSINOPHILS % (AUTO) 2 % (1-7); LYMPHOCYTES # (AUTO) 1.75 x10^3/uL (1-3.4); LYMPHOCYTES % (AUTO) 29 % (22-44); MD NO; MEAN CORPUSCULAR HEMOGLOBIN 32.7 pg (27.0-34.8); MEAN CORPUSCULAR HGB CONC 33.4 g/dL (32.4-35.8); MEAN CORPUSCULAR VOLUME 97.8 fL (80-100); MEAN PLATELET VOLUME 10.3 fL (7.4-10.4); MONOCYTES # (AUTO) 0.32 x10^3/uL (0.2-0.8); MONOCYTES % (AUTO) 6 % (2-9); NEUTROPHILS # (AUTO) 3.76 x10^3/uL (1.8-6.8); NEUTROPHILS % (AUTO) 63 % (42-75); PLATELET COUNT 212 x10^3/uL (130-400); RED BLOOD COUNT 4.54 x10^6/uL (3.82-5.3); RED CELL DISTRIBUTION WIDTH 13.4 % (9.6-15.2)
[2018-12-03 21:17] LABS: ALANINE AMINOTRANSFERASE 26 U/L (12-78); ANION GAP 10 mmol/L (5-15); CHLORIDE 107 mmol/L (98-107)
[2018-12-03 21:22] LABS: ALKALINE PHOSPHATASE 77 U/L (45-117); BILIRUBIN,TOTAL 0.6 mg/dL (0.2-1.0); TOTAL PROTEIN 7.8 g/dL (6.4-8.2); TROPONIN I < 0.015 ng/mL (0.000-0.045)
[2018-12-03 21:34] VITALS: BP 175/81
--- NOTE | 2018-12-03 21:34 | NUR ---
Patient is resting comfortably in bed. Vital Signs within normal limits.
--- NOTE | 2018-12-03 22:47 | NUR ---
Patient/Caregiver given discharge instructions and they have confirmed that they understand the instructions. Patient ambulatory with steady gait.
== END 2018-12-03 22:52 | disposition home or self-care (01) ==
LOC: ED 20:10
DX: I25.10 Atherosclerotic heart disease of native coronary artery without angina pectoris (principal); I10 Essential (primary) hypertension; Z86.73 Personal history of transient ischemic attack (TIA), and cerebral infarction without residual deficits; I25.2 Old myocardial infarction; F41.1 Generalized anxiety disorder
CPT/HCPCS: 36415; 71045; 80053; 84443; 84484; 85025; 93005; 99284

== ENCOUNTER 2020-03-14 04:08 | Emergency (ER) | payer MEDICAID ==
[~2020-03-14] VITALS: Ht 157.5 cm; Wt 67.0 kg
[~2020-03-14 04:08] MED LIST changes: +LISI1TAB23 PO; -LISI1TAB3 PO; -WARF1TAB PO; +WARF1TAB2 PO
[2020-03-14] MEDS ORDERED: ASPIRIN 81 MG TABLET CHEW ONE (05:21)
[2020-03-14] MEDS ORDERED: ASPIRIN 81 MG TABLET CHEW PO ONE (05:30)
[2020-03-14 05:58] LABS: BASOPHILS # (AUTO) 0.04 x10^3/uL (0-0.1); BASOPHILS % (AUTO) 1 % (0-1); EOSINOPHILS # (AUTO) 0.09 x10^3/uL (0-0.4); EOSINOPHILS % (AUTO) 1 % (1-7); LYMPHOCYTES # (AUTO) 1.54 x10^3/uL (1-3.4); LYMPHOCYTES % (AUTO) 22 % (22-44); MD NO; MEAN CORPUSCULAR HEMOGLOBIN 32.1 pg (27.0-34.8); MEAN CORPUSCULAR HGB CONC 33.5 g/dL (32.4-35.8); MEAN CORPUSCULAR VOLUME 95.9 fL (80-100); MEAN PLATELET VOLUME 10.5 fL (7.4-10.4); MONOCYTES # (AUTO) 0.46 x10^3/uL (0.2-0.8); MONOCYTES % (AUTO) 7 % (2-9); NEUTROPHILS # (AUTO) 4.82 x10^3/uL (1.8-6.8); NEUTROPHILS % (AUTO) 69 % (42-75); PLATELET COUNT 195 x10^3/uL (130-400); RED BLOOD COUNT 4.51 x10^6/uL (3.82-5.3); RED CELL DISTRIBUTION WIDTH 13.1 % (9.6-15.2)
[2020-03-14 06:21] LABS: ALBUMIN 3.9 g/dL (3.4-5.0); ANION GAP 5 mmol/L (5-15); CALCIUM 9.3 mg/dL (8.5-10.1); CHLORIDE 111 mmol/L (98-107)
[2020-03-14 06:25] LABS: ALANINE AMINOTRANSFERASE 23 U/L (12-78); ALKALINE PHOSPHATASE 83 U/L (45-117); BILIRUBIN,TOTAL 0.4 mg/dL (0.2-1.0); TOTAL PROTEIN 8.2 g/dL (6.4-8.2); TROPONIN I < 0.015 ng/mL (0.000-0.045)
--- NOTE | 2020-03-14 06:55 | NUR ---
REPORT RECEIVED FROM SB LIN FOR TRANSFER OF PATIENT CARE AT PATIENT BEDSIDE.
[2020-03-14 07:04] VITALS: BP 136/82
--- NOTE | 2020-03-14 08:04 | NUR ---
LATE ENTRY: Patient and daughter given discharge instructions and they have confirmed that they understand the instructions, IV removed with tip intact, all patient belongings gathered by patient and daughter. Patient ambulatory with steady gait to discharge desk.
== END 2020-03-14 07:19 | disposition home or self-care (01) ==
LOC: ED 05:48
DX: R07.89 Other chest pain (principal); R94.31 Abnormal electrocardiogram [ECG] [EKG]; I11.9 Hypertensive heart disease without heart failure; I25.2 Old myocardial infarction; I25.10 Atherosclerotic heart disease of native coronary artery without angina pectoris; G43.909 Migraine, unspecified, not intractable, without status migrainosus; Z86.73 Personal history of transient ischemic attack (TIA), and cerebral infarction without residual deficits
CPT/HCPCS: 36415; 71045; 80053; 83880; 84484; 85025; 93005; 99285